=== PATIENT | male | born 1955 | race Caucasian/White ===

== ENCOUNTER → 2017-08-15 | Outpatient (CLI) | payer BC ==
--- NOTE | 2017-08-15 14:18 | DIAGNOSTIC IMAGING REPORT ---
L ANKLE MIN 3 VIEWS ROUTINE, L FOOT MIN 3 VIEWS ROUTINE CLINICAL HISTORY: LEFT ANKLE,FOOT INJURY COMPARISON STUDY: None. FINDINGS: Soft tissue swelling within the left ankle and midfoot. No acute fracture dislocation within the left ankle. Mildly displaced fracture involving the anterior calcaneus which extend into the anterior process. No fractures identified within the forefoot. IMPRESSION: 1. No acute fracture or dislocation within the left ankle. 2. Mildly displaced fracture involving the anterior calcaneus which extends into the anterior process. Electronically signed by: Keyshawn Adams M.D. 08/15/2017 2:17 PM Dictated Date/Time: 08/15/2017 2:12 PM
== END | disposition home or self-care (01) ==
LOC: C.RAD1850 13:41
PROVIDERS: ATTEND Student in an Organized Health Care Education/Training Program
DX: M79.672 Pain in left foot (principal); M25.572 Pain in left ankle and joints of left foot; M79.89 Other specified soft tissue disorders

== ENCOUNTER → 2017-08-15 | Outpatient (CLI) | payer BC ==
--- NOTE | 2017-08-15 15:01 | DIAGNOSTIC IMAGING REPORT ---
L VENOUS DOPP LOWER EXT UNILAT CLINICAL HISTORY: LEFT LEG SWELLING AND PAIN pain. Edema. TECHNIQUE: Venous Doppler COMPARISON STUDY: None FINDINGS: Normal study IMPRESSION: Normal study The above report was generated using voice recognition software. It may contain grammatical, syntax or spelling errors. Electronically signed by: Logan Hunt M.D. 08/15/2017 3:00 PM Dictated Date/Time: 08/15/2017 2:59 PM
== END | disposition home or self-care (01) ==
LOC: C.ULTR 14:29
PROVIDERS: ATTEND Student in an Organized Health Care Education/Training Program
DX: M79.89 Other specified soft tissue disorders (principal)

== ENCOUNTER → 2017-09-18 | Outpatient (CLI) | payer BC | END | disposition home or self-care (01) | LOC: C.RDSM 15:55 | PROVIDERS: ATTEND Orthopaedic Surgery | DX: S92.902A Unspecified fracture of left foot, initial encounter for closed fracture (principal); X58.XXXA Exposure to other specified factors, initial encounter ==

== ENCOUNTER → 2017-10-16 | Outpatient (CLI) | payer BC | END | disposition home or self-care (01) | LOC: C.RDSM 09:08 | PROVIDERS: ATTEND Orthopaedic Surgery | DX: T14.8XXA Other injury of unspecified body region, initial encounter (principal); X58.XXXA Exposure to other specified factors, initial encounter ==

== ENCOUNTER 2020-03-04 05:04 | Inpatient (IN) ==
--- NOTE | 2020-02-03 09:24 | PAT Medication Instructions ---
Medication Instructions Date of Service February 03, 2020 Home Medications Viagra 1 dose PO UD PRN coenzyme Q10 [CoQ-10] 100 mg PO DAILY ferrous sulfate [iron] 325 mg PO DAILY glucos sul [id number] [Glucosamine Chondroitin] 1 cap PO BID hydrochlorothiazide 12.5 mg PO QAM lutein-zeaxanthin 1 cap PO DAILY naproxen 250 mg PO BID PRN ASK your surgeon for instructions naproxen 250 mg PO BID PRN STOP taking 2 weeks before surgery lutein-zeaxanthin 1 cap PO DAILY glucos sul [id number] [Glucosamine Chondroitin] 1 cap PO BID coenzyme Q10 [CoQ-10] 100 mg PO DAILY STOP taking 24 hours before surgery Viagra 1 dose PO UD PRN DO NOT take the morning of surgery hydrochlorothiazide 12.5 mg PO QAM ferrous sulfate [iron] 325 mg PO DAILY NOTHING TO EAT OR DRINK AFTER MIDNIGHT Other Notes If you have any questions please call us at [phone] or [phone] or [phone] or [phone]
--- NOTE | 2020-02-04 09:20 | Anesthesiology Consultation ---
Date of Service February 04, 2020 Assessment & Plan (1) Encounter for pre-operative examination: Chart Review Chart Review: Pending: Refer to Additional Notes / Consult section (cardio clearance (PAT scheduling) and surgeon ordered PCP clearance ) and Patient seen in Pre Admission Testing EKG showing T wave abnormality- per cardio- T wave inversion have progressed from nonspecific TWA in 2015. Will refer for cardio clearance. Patient aware this may be happening. Awaiting surgeon ordered PCP clearance Per PAT visit 02/04/20, patient traveled to [facility] one week ago but stayed in car. Wears mask and takes precautions if out. No known PUI or Covid positive contacts. No current Covid related symptoms. No history of Covid testing. Did discourage any travel or new contact to others prior to surgery. Consults Requested cardiac (secondary to EKG changes ) Teaching & Discussion Pre-Anesthesia Teaching/Discussion Notes: Instructed NPO after midnight before surgery,except medications with 15 cc of water. Medication instructions provided according to the PAT guidelines. History Surgery Operation Date: 03/04/20 07:15 Proposed Procedures p Total Knee Arthroplasty - Shlomo Graham MD Height/Weight Height: 6 ft 3 in Weight: 119.9 kg Allergies Allergy/AdvReac Type Severity Reaction Status Date / Time No Known Allergies Allergy Verified 01/29/20 08:15 Medications Home Medications Medication Instructions Recorded Confirmed Last Taken Viagra 1 dose PO UD PRN 01/29/20 01/29/20 Unknown coenzyme Q10 [CoQ-10] 100 mg PO DAILY 01/29/20 01/29/20 Unknown ferrous sulfate [iron] 325 mg PO DAILY 01/29/20 01/29/20 Unknown glucos sul [id number] 1 cap PO BID 01/29/20 01/29/20 Unknown [Glucosamine Chondroitin] hydrochlorothiazide 12.5 mg PO QAM 01/29/20 01/29/20 Unknown lutein-zeaxanthin 1 cap PO DAILY 01/29/20 01/29/20 Unknown naproxen 250 mg PO BID PRN 01/29/20 01/29/20 Unknown Past Medical History Medical History History of basal cell carcinoma Removed with Mohs procedure- follows with derm routinely Hypertension Macular degeneration Osteoarthritis Exercise / Class Metabolic Activity II 4-5 Yardwork/Stairs/Walk up hill (one flight of stairs - no chest pain or SOB ) Past Family History Family History Mother Post-operative nausea and vomiting Father Diabetes Aunt Colon cancer Past Surgical History Surgical History History of arthroscopy of right knee History of Mohs micrographic surgery for skin cancer History of surgery right biceps tendon repair History of wisdom tooth extraction Nausea and vomiting after administration of anesthetic agent Past Anesthesia History No Hx of Anesthesia Complications and No Family Hx of Anesthesia Complications (with exception to mother - PONV) History of PONV No Hx of PONV and No Hx of Motion Sickness Social History Smoking Status: Never smoker Do You Dip or Chew Tobacco: No Hx Alcohol Use: Yes Alcohol type: wine alcohol intake frequency: holidays/special occasions only Hx Substance Use: No Review of Systems Occ snoring- no witnessa apnea Patient denies chest pain, shortness of breath, dyspnea on exertion, reflux, cough, wheezing, palpitations. No hx of seizures, stroke, NM.. No hx of blood clots or blood transfusions Physical Exam Vital Signs VITALS BP 136/85 P 65 TEMP 98.2 SP02 95% RESP 16 Constitutional no acute distress ENMT Mouth: no TMJ clicking Thyromental Distance: > or= 3.5 Finger Breadths (3.5) Mallampati Class: II Cap on front tooth loose. Chipped molar. Crowns to molars Neck neck extension not limited Respiratory normal respiratory effort; no respiratory distress Auscultation: lungs clear to auscultation bilaterally; no wheezes Cardiovascular Rate/Rhythm: regular rate and regular rhythm Heart Sounds: no murmur Vessels: no carotid bruit Musculoskeletal Spine: no pain with cervical ROM Neurologic moves all extremities Psychiatric Orientation: alert Testing Laboratory Results 02/04/20 09:17 02/04/20 09:17 PT 11.4 Seconds (9.0-12.0) 02/04/20 09:17 INR 1.1 (0.9-1.1) 02/04/20 09:17 Hemoglobin A1c 4.9 % (4.5-5.6) 02/04/20 09:17 Urine Color Yellow 02/04/20 09:17 Urine Appearance Clear (Clear) 02/04/20 09:17 Urine pH 5.0 (4.5-7.5) 02/04/20 09:17 Ur Specific [place] 1.026 (1.000-1.030) 02/04/20 09:17 Urine Protein Negative (Negative) 02/04/20 09:17 Urine Glucose (UA) Negative (Negative) 02/04/20 09:17 Urine Ketones Negative (Negative) 02/04/20 09:17 Urine Nitrite Negative (Negative) 02/04/20 09:17 Ur Leukocyte Esterase Negative (Negative) 02/04/20 09:17 Blood Type O Negative 02/04/20 09:17 Antibody Screen NEGATIVE 02/04/20 09:17 Electrocardiogram Date: 02/04/20 Findings: + NSR @ (63) T wave abnormality, consider inferior ischemia. Compared to EKG from March 22, 2015inverted T waves have replaced nonspecific T wave abnormality in inferior leads.
[2020-02-04 10:34] LABS: Appearance Urine Clear (Clear); Bilirubin Urine Negative (Negative); Blood Urine Negative (Negative); Color Urine Yellow; Glucose Urine UA Negative (Negative); Ketones Urine Negative (Negative); Leukocyte Esterase Urine Negative (Negative); Nitrite Urine Negative (Negative); Protein Urine Negative (Negative); Specific Gravity Urine 1.026 (1.000-1.030); Urobilinogen Urine Negative (Negative)
[2020-02-04 10:36] LABS: Albumin Level 3.9 gm/dl (3.4-5.0); BUN Creatinine Ratio 21.4 (10-20); Calcium 8.8 mg/dl (8.5-10.1); Creatinine Clr Calc Pharmacy 110.5 ml/min; Est GFR (African American) 99.5; Est GFR (Non-African American) 85.8; INR 1.1 (0.9-1.1); Prothrombin Time 11.4 Seconds (9.0-12.0)
[2020-02-04 10:38] LABS: Albumin Globulin Ratio 0.8 (0.9-2); Bilirubin,Total 0.8 mg/dl (0.2-1); Globulin 4.6 gm/dl (2.5-4.0); Total Protein 8.5 gm/dl (6.4-8.2)
[2020-02-04 10:45] LABS: Basophils # (auto) 0.02 K/uL (0-0.2); Basophils % (auto) 0.3 %; Eosinophils # (auto) 0.17 K/uL (0-0.5); Eosinophils % (auto) 2.3 %; Hematocrit (blood only) 41.4 % (42-52); Hemoglobin 14.6 g/dL (14.0-18.0); Immature Granulocytes # (auto) 0.01 K/uL (0.00-0.02); Immature Granulocytes % (auto) 0.1 %; Lymphocytes # (auto) 0.82 K/uL (1.2-3.4); Lymphocytes % (auto) 11.2 %; Mean Corpuscular Hemoglobin 30.2 pg (25-34); Mean Corpuscular Hgb Conc 35.3 g/dL (32-36); Mean Corpuscular Volume 85.7 fL (80-100); Monocytes # (auto) 0.77 K/uL (0.11-0.59); Monocytes % (auto) 10.6 %; Neutrophils % (auto) 75.5 %; Platelet Count 184 K/uL (130-400); Red Blood Count 4.83 M/uL (4.7-6.1); White Blood Count 7.29 K/uL (4.8-10.8)
[2020-02-04 11:01] LABS: Estimated Average Glucose 94 mg/dl; Hemoglobin A1C 4.9 % (4.5-5.6)
--- NOTE | 2020-02-04 11:02 | History & Physical Report ---
Date of Service February 04, 2020 Assessment & Plan (1) Osteoarthritis of right knee: Plan: Patient is scheduled to undergo this procedure with Dr. Shlomo Cano the [facility], as an inpatient on March 04, 2020. Risks and complications of the procedure such as: Infection, bleeding, pain, scarring, nerve blood vessel damage, weakness, wound problems, stiffness, incomplete relief of symptoms, hardware failure, hardware loosening, wear, fracture, tendon or ligament injury, blood clots, embolism, heart attack, stroke or were explained to the patient by Dr. Lema at his visit today. Patient is aware of the risks and informed consent to proceed with surgery was obtained at today's visit. Patient also understands the risks of proceeding with surgical intervention during the COVID-19 pandemic. Currently he is asymptomatic and COVID-19 testing will be performed prior to his surgery. We will also obtain a preoperative CBC with differential, a complete metabolic panel, PT/INR, blood type and screen, urinalysis, urine culture, EKG, hemoglobin A1c and a nasal culture for MRSA. Also a clearance form was faxed to the patient's primary care providers office for surgical approval (Dr. David Wyatt). Patient has an appointment with PAT at the hospital later this morning and we will obtain the necessary testing at that time. Patient states that he has a walker he will bring with him on the day of surgery. We discussed discharge planning and patient states that due to the COVID-19 crisis he will most likely attempt to do therapy on his own at home, and after 2 weeks time we will most likely do outpatient therapy at [facility] in [place]. Went over the total knee arthroplasty packet. Discussed antibiotic use after total joint surgery. Advised the patient that we will discharge him with pain medication and have him take 2 baby aspirin daily for 30 days postoperatively for DVT prophylaxis. Patient is scheduled for his 2-week postoperative follow-up with myself on March 19, 2020 at 1 PM. The patient verbalizes understanding of all information provided during today's visit, thanks us for the care he received, and states if he has questions or concerns that should arise prior to his procedure, he will contact clinic. History of Present Illness Chief Complaint: Right knee pain Primary Care Provider: David Wyatt MD History of Present Illness (including history relevant to procedure): This 64-year-old male presents the clinic today for his preoperative history and physical. Patient has had ongoing right knee pain with some swelling/effusion since November 2018. Patient is attended physical therapy, has had multiple steroid injections as well as joint aspiration, but has failed these conservative measures. He is also used nonsteroidal agents with only mild relief. At times he needs to use a cane as an ambulatory aid due to an antalgic gait. Patient is an avid hiker and states that this pain is preventing him from taking trips or hiking on the weekends. Past Medical History: Problems: Right knee DJD Arthritis of both knees Blood donor HBP (high blood pressure) Medicare annual wellness visit, subsequent Tendinitis Cataract, bilateral Lesion of skin of face Rupture of left long head biceps tendon History of dysplastic nevus Nocturia Family history of diabetes mellitus in father Weight disorder Need for prophylactic vaccination and inoculation against influenza ROUTINE GENERAL MEDICAL EXAMINATION AT A HEALTH CARE FACILITY SPLENOMEGALY Low ferritin Onychomycosis Macular degeneration Prostatism ED (erectile dysfunction) Diverticulosis Hemorrhoid Procedure History Procedure Procedure Date Comments Extraction of wisdom tooth Dysplastic nevus removal MRI of right knee 10/08/2019 - impression:1. postoperative changes of partial meniscectomy of the medial meniscus with near complete loss of volume of the body which is extruded into the medial gutter. Horizontal tear of the posterior horn extends into the root ligament which may have been present at the time of the meniscetomy. Correlate with prior imaging2. Vertical longitudinal tear of the junction of the body and posterior orn of the lateral meniscus3. Tricompartmental grade 4 chondrosis4. Lare knee joint effusion with diffuse synovitis and a moderate-sized Bakers cyst Procedure 2018 - right knee Venous doppler ultrasonography 08/15/2017 - Impression:Normal study X-ray of left ankle 08/15/2017 - Impression:1. No acute fracture or dislocation within the left ankle.2. Mildly displaced fracture involving the anterior calcaneus which extends into the anterior process. Mohs' micrographic surgery 05/16/2017 - right cheek Electrodesiccation with curettage 04/12/2017 - shave left shoulder 3 views 05/11/2016 - Impression: No acute bony abnormality is seen in the left shoulder cervical spine 6 views 05/11/2016 - Impression:No acute bony abnormality is seen involving the cervical spine.Mild cervical spondylosis as above See report Arthroscopic repair of meniscus 03/23/2015 - Right knee Colonoscopy: diverticulosis 06/13/2011 Repair of ruptured biceps tendon 02/1999 - right Allergies and Sensitivities: Allergy Not found in Search(abdominal pain, diarrhea) Family history: Positive for cancer, diabetes, heart disease, hypertension, hypercholesterolemia, rheumatic heart disease, osteoporosis Social history: Completely unremarkable Current Home Meds: (Last Updated 02/03 07:54) glucosamine (Chondroitin- Glucosamine) 1 cap PO Daily Chondroitin 1200 mg and Glucosamine 1500 mg - C Boy 04/06 08:14topical (Voltaren 1% topical gel) 1 appl topical qid PRN: Pain 4g to affected area 4 times a daysulfate (ferrous sulfate 324 mg (65 mg elemental iron) oral tablet) 324 mg PO Daily(hydroCHLOROthiazide 12.5 mg oral tablet) 12.5 mg PO Dailywith minerals (ICaps with Lutein and Zeaxan) 1 tab PO Daily Lutein 25 mg and Zeaxan 5 mg - C Boy 04/06 08:13(naproxen sodium 220 mg oral capsule) 220 mg PO [id number] conjugate vaccine (Prevnar 13 intramuscular suspension) 0.5 mL IM ONCE please administer.(Viagra 100 mg oral tablet) 100 mg PO Daily PRN: as needed for erectile dysfunction 1 hour before sexual activitytopical (triamcinolone 0.1% topical ointment) 1 appl topical bid apply to dermatitis on the ear until clear and then use as needed(Coenzyme Q10 100 mg oral capsule) 100 mg PO Dailyvaccine, inactivated (Shingrix intramuscular injection) 0.5 mL IM ONCE repeat dose in 2 to 6 months Allergies Allergy/AdvReac Type Severity Reaction Status Date / Time No Known Allergies Allergy Verified 01/29/20 08:15 Home Medications Home Medications Medication Instructions Recorded Confirmed Type Viagra 1 dose PO UD PRN 01/29/20 01/29/20 History coenzyme Q10 [CoQ-10] 100 mg PO DAILY 01/29/20 01/29/20 History ferrous sulfate [iron] 325 mg PO DAILY 01/29/20 01/29/20 History glucos sul [id number] 1 cap PO BID 01/29/20 01/29/20 History [Glucosamine Chondroitin] hydrochlorothiazide 12.5 mg PO QAM 01/29/20 01/29/20 History lutein-zeaxanthin 1 cap PO DAILY 01/29/20 01/29/20 History naproxen 250 mg PO BID PRN 01/29/20 01/29/20 History Past Med/Surg History Medical History History of basal cell carcinoma Removed with Mohs procedure- follows with derm routinely Hypertension Macular degeneration Osteoarthritis Surgical History History of arthroscopy of right knee History of Mohs micrographic surgery for skin cancer History of surgery right biceps tendon repair History of wisdom tooth extraction Nausea and vomiting after administration of anesthetic agent Family History Mother Post-operative nausea and vomiting Father Diabetes Aunt Colon cancer Social History Preferred Language: Irish Communication Ability: Effective Gaming Dealer Required: No Beliefs That Will Affect Care: None Current Living Situation: Spouse Other Information That Helps Us Care for You: No Feels Safe at Home: Yes Safety Concerns: Feels Safe At This Time Smoking Status: Never smoker Do You Dip or Chew Tobacco: No ; Second Hand Exposure: No ; Hx Alcohol Use: Yes Alcohol type: wine Hx Substance Use: No Review of Systems All systems reviewed & are unremarkable except as noted in HPI & below Physical Exam Physical Exam: Physical Exam: (relevant to the procedure, including heart and lung evaluation) General: Alert and oriented x3 with proper grooming and hygiene Eyes: Pupils are equal and reactive to light, and accommodating. Extraocular movements are intact Throat: Anterior oropharynx is clear with absence of edema, erythema and exudate Cardiac: Regular rate and rhythm with no murmurs or gallops appreciated Lungs: Clear to auscultation throughout with no wheezing, rales or rhonchi Abdomen: Obese, nondistended, nontender with normal active bowel sounds Extremities: Right knee; range of motion is from 5 to 120 degrees. There is crepitation with passive range of motion. There is medial joint line tenderness when knee is palpated in the flexed position. There is palpable crepitation with manipulation of the patient's patella. There is 2+ effusion. There is no erythema, ecchymosis, warmth or palpable bony deformity. Patient is neurovascular intact in the right lower extremity. Neuro: Cranial nerves II through XII are intact with no motor or sensory deficit Skin: Normal in appearance with no open skin areas or discharge. Results & Data Diagnostic Findings Studies (relevant to the procedure): MRI that was done on 10/08/2019 was reviewed. This demonstrates significant loss of the meniscal tissue in the medial aspect of the knee consistent with his prior meniscectomy. The medial compartment has significant chondral loss as well as bone marrow edema noted on both sides of the tibiofemoral joint and the medial compartment. He has some bone marrow edema seen in the lateral aspect of the tibial plateau as well. There is some tearing of the residual posterior horn of the medial meniscus as well as a tear of the lateral meniscus. He has significant patellofemoral wear as well with bone marrow edema within the superior and central aspect of the patella.
--- NOTE | 2020-02-04 16:17 | Electrocardiogram Report ---
Test Reason : Blood Pressure : / mmHG Vent. Rate : 063 BPM Atrial Rate : 063 BPM P-R Int : 156 ms QRS Dur : 102 ms QT Int : 412 ms P-R-T Axes : 062 074 -47 degrees QTc Int : 421 ms Normal sinus rhythm T wave abnormality, consider inferior ischemia Abnormal ECG When compared with ECG of 22-MAR-2015 09:51, Inverted T waves have replaced nonspecific T wave abnormality in Inferior leads Confirmed by Phong Salazar ([id number]) on 02/04/2020 4:17:23 PM Referred By: Shlomo Graham Confirmed By:Cl Salazar
[2020-03-04] MEDS ORDERED: FAMOTIDINE 20 MG TAB PO SCH (06:00)
[2020-03-04] MEDS ORDERED: dexAMETHasone 4 MG TAB PO SCH (06:00)
[2020-03-04] MEDS ORDERED: CeleBREX 200 MG CAP PO SCH (06:00)
[2020-03-04] MEDS ORDERED: ROPIVACAINE 0.5% HCL/PF 150 MG, BUPIVACAINE 0.5% MPF 30 ML, EPINEPHrine 0.15 MG, Ketoro... INFIL SCH (06:00)
[2020-03-04] MEDS ORDERED: LR 500ML BOLUS, THEN 15ML/HR IV SCH (06:00)
[2020-03-04] MEDS ORDERED: TRANEXAMIC ACID 1,000 MG **IV Pre-op IV SCH (06:00)
[2020-03-04] MEDS ORDERED: CEFAZOLIN 3000MG 72.5 ML IV SCH (06:00)
[2020-03-04] MEDS ORDERED: TRANEXAMIC ACID / 0.7% NACL 1,000 MG/100 ML BAG IV SCH ×2 (06:00→15:30)
[2020-03-04] MEDS ORDERED: TRAMADOL HCL 50 MG TABLET PO SCH (06:00)
[2020-03-04] MEDS ORDERED: LR 60ML/HR IV SCH (06:00)
[2020-03-04] MEDS ORDERED: SCOPOLAMINE 1.5 MG TDSY TD SCH (06:00)
[2020-03-04] MEDS ORDERED: ACETAMINOPHEN 500 MG TAB PO SCH (06:00)
[2020-03-04] MEDS ORDERED: METOCLOPRAMIDE HCL 10 MG TABLET PO SCH (06:00)
[2020-03-04] MEDS ORDERED: BUPIVACAINE/EPINEPHRINE 0.25% 1:200,000 30 ML VIAL ONE (06:21)
[2020-03-04] MEDS ORDERED: BUPIVACAINE 0.5 % 5 MG/1 ML PF 10ML VIAL ONE (06:21)
[2020-03-04] MEDS ORDERED: fentaNYL citrate 100 MCG/2 ML VIAL ONE (06:33)
[2020-03-04] MEDS ORDERED: LIDOCAINE HCL 2% 2 ML VIAL/AMP(20MG/ML) INFIL ONE (06:33)
[2020-03-04] MEDS ORDERED: PROPOFOL IV EMULSION 10 MG/ML 20 ML VIAL IV ONE ×3 (06:33→07:53)
[2020-03-04] MEDS ORDERED: MIDAZOLAM HCL 1 MG/ML 2ML VIAL ONE ×2 (06:33→10:54)
--- NOTE | 2020-03-04 06:44 | History & Physical Bridge Note ---
Date of Service March 04, 2020 History & Physical Bridge Note I have examined the patient, reviewed the History & Physical and in the interval since the performance of the History & Physical I have noted the following changes of clinical significance: no changes noted
[2020-03-04] MEDS ORDERED: ATROPINE SULFATE 0.1 MG/ML 10ML SYR IV PRN (06:55)
[2020-03-04] MEDS ORDERED: ePHEDrine sulfate 50 MG/ML AMP IV PRN (06:55)
[2020-03-04] MEDS ORDERED: fentaNYL citrate 100 MCG/2 ML VIAL IV PRN (06:55)
[2020-03-04] MEDS ORDERED: ONDANSETRON INJ 2 MG/ML 2 ML VIAL IV PRN ×2 (06:55→09:23)
[2020-03-04] MEDS ORDERED: HYDROmorphone INJ 2 MG/ML SYR/VIAL IV PRN (06:55)
[2020-03-04] MEDS ORDERED: ORTHO JOINT ANESTHETIC ONE (07:01)
[2020-03-04] MEDS ORDERED: ePHEDrine sulfate 50 MG/ML SYR ONE (07:56)
--- NOTE | 2020-03-04 09:15 | Operative Report ---
Post Operative Report Pre & Post Diagnosis Operation Date: 03/04/20 07:15 Pre-Op Diagnosis: Right Knee Ostoearthritis Post-Op Diagnosis: Right Knee Ostoearthritis I identified the patient and participated in the time-out.: Yes Procedure Operation Date: 03/04/20 07:15 Actual Procedures p Right Total Knee Arthroplasty(Right) - Shlomo Graham MD Surgeon Shlomo Graham MD Real Estate Firm Manager Carroll Robbins MD and RUPINDER Charles PA-C Estimated Blood Loss 100 Findings Consistent with Post-Op Diagnosis Specimens R knee bone and soft tissue. Anesthesia Type Spinal MAC Complications none Disposition Accompanied Patient To Recovery: No Disposition: Recovery Room Indications 64-year-old male with right knee osteoarthritis refractory to conservative management. X-rays and MRI demonstrate end-stage osteoarthritis. I had a long discussion with him about the risks and benefits of surgery alternatives to surgery and expected outcomes. After reviewing all these elected to proceed with surgery. All questions were answered. Informed consent was signed. Description of Procedure Patient was identified in the preoperative holding area where the surgical site was marked. Patient was brought back to the operating room, placed on the operating room table, and IV sedation was administered. All bony prominences were padded. Perioperative antibiotics and tranexamic acid were administered. Exam under anesthesia was performed. Patient had a 7 degree flexion contracture and flexed up to 125 degrees. He was stable to varus and valgus at 0 and 30 degrees. The surgical site was prepped and draped in the normal sterile fashion. Prior to incision a multidisciplinary timeout was called. All in the room were in agreement. We began by exsanguinating the limb with an Esmarch bandage. Tourniquet was inflated to 250 mmHg. A 16 cm long incision was made over the anterior aspect of the knee. I dissected through the subcutaneous tissues to the level of the fascia. Full-thickness flaps are raised above the fascia. A median parapatellar arthrotomy was made. Half the fat pad was excised. A medial release was performed with Bovie electrocautery on the proximal tibia. Synovitis in the suprapatellar pouch was removed. The patella was then everted and held with 2 towel clips. The thickness of the patella was measured at 25 mm. Patellar resection was performed. Caliper showed the patella thickness now to be 15 mm. A size 41 trial was placed and had a great fit. The 3 drill holes were placed then the trial button was placed. The patellar thickness was now 26 mm which I was very happy with. The patellar trial was then removed, the patella was everted and the knee was flexed up. Osteophytes were removed from the femoral condyles and intercondylar notch. The ACL and PCL were excised. Intramedullary drill guide was drilled into the femur. Distal femoral cutting guide was placed set at 5 degrees of valgus to resect 11 mm off the distal femur. Distal femoral resection was made without difficulty. Due to his flexion contracture I elected to take another 2 mm off the distal femur which was done without difficulty. The tibia was then exposed. The lateral meniscus was sharply excised. The tibial cutting jig was set 2 clicks medial at the ankle to resect 10 mm off the less involved compartment. The jig was then pinned in position and the tibial cut was made. We then brought the knee into full extension. Lamina spreaders were placed. The medial meniscus was excised. The extension block was then placed for 12.5 mm thickness poly. This gave us full extension and excellent stability to varus and valgus. Next the knee was flexed up and the femoral sizing guide was placed. The patient sized to a size 6 femur. The 3 degree external rotation jig was used to create 2 holes in the distal femur. The jig was removed and the holes were compared to Whitesides axis and the epicondylar axis. We were happy with the rotation, and therefore placed a size three 4-in-1 cutting jig and pinned this into position. Our 4 cuts were made. The cutting jig was removed. The flexion block was then placed with the knee held at 90 degrees. There was excellent stability to varus and valgus at 90 degrees with no gapping medially or laterally. Next the box cutting jig was placed on the distal femur. The box cut was made and the femoral trial was impacted into position. The tibia was sized to a 5 for a rotating platform component. The tibial tray was positioned in external rotation on the cut tibial surface and the knee was brought through a full range of motion. We then pinned the tibial tray into position and used the intramedullary drill followed by the keel punch. The trial polyethylene was then placed and the knee was brought through a full range of motion. I was very happy with the stability through a full range of motion. Next the trial components were removed. I then injected the posterior capsule and periosteum with the periarticular injection cocktail. The bone cuts were then irrigated and dried while the cement was mixed on the back table. The femoral component was cemented on first. Excess cement was removed. A lap sponge was placed over the femoral component for protection, then the tibia was subluxated anteriorly. The size 5 tibial component was then cemented in place. Again excess cement was removed. The trial polyethylene was then placed and the knee was brought into full extension and held there until the cement cured. The patella was cemented and clamped. Dilute Betadine solution was then allowed to irrigate the knee while the cement cured. Once the cement was fully cured, the tourniquet was let down and meticulous hemostasis was ensured. The wound was irrigated out with copious amounts normal saline. The knee was brought through a full range of motion and we are very happy with the patella tracking and the stability. Therefore, the trial tibial polyethylene was removed and the real size 6 polyethylene 12.5 mm thickness was placed to match the femur. We then began to close. Interrupted 0 Vicryl suture was used to repair the patellar retinaculum in figu re-of-eight fashion. The quadriceps and patellar tendons were run with #1 Ethibond. The deep dermal layer was closed with running 2-0 Vicryl. Chris were used for the skin. A compressive dressing was placed. Patient's sedation was lifted and was transferred to recovery room in stable condition. Summary of implants: GigaLogixuy Sigma Posterior Stabilized Cemented Femur, size 6 Tibial Tray cemented, size 5 Tibial polyethylene insert, 12.5 mm thickness, size 6 to match the femur Oval come patella, size 41 2 batches of simplex bone cement Postoperative course: Patient will be admitted to the floor for pain control and monitoring. Weightbearing as tolerated with no knee range of motion for 48 hours. Aspirin for DVT prophylaxis. I attest to the content of the Intraoperative Record and any orders documented therein. Any exceptions are noted below.
[2020-03-04] MEDS ORDERED: ALUMINUM/MAGNESIUM SUSP 30 ML UDC PO PRN (09:23)
[2020-03-04] MEDS ORDERED: bisacodyL 10 MG SUPP PR PRN (09:23)
[2020-03-04] MEDS ORDERED: TAMSULOSIN HCL 0.4 MG CAP PO PRN (09:23)
[2020-03-04] MEDS ORDERED: DiphenhydrAMINE HCL 50 MG/ML VIAL IV PRN (09:23)
[2020-03-04] MEDS ORDERED: OXYCODONE HCL IR 5 MG TAB (IMMEDIATE RELEASE) PO PRN (09:23)
[2020-03-04] MEDS ORDERED: MAGNESIUM HYDROXIDE SUSP 30 ML UDC PO PRN (09:23)
[2020-03-04] MEDS ORDERED: METOCLOPRAMIDE HCL INJ 5 MG/ML 2 ML VIAL IV PRN (09:23)
[2020-03-04] MEDS ORDERED: NALOXONE HCL 0.4 MG/1 ML VIAL/CARP IV PRN (09:23)
--- NOTE | 2020-03-04 09:23 | Operative Report ---
Post Operative Report Pre & Post Diagnosis Operation Date: 03/04/20 07:15 Pre-Op Diagnosis: Right Knee Ostoearthritis Post-Op Diagnosis: Right Knee Ostoearthritis I identified the patient and participated in the time-out.: Yes Procedure Operation Date: 03/04/20 07:15 Actual Procedures p Right Total Knee Arthroplasty(Right) - Shlomo Graham MD Surgeon Shlomo Graham MD Electronic Tech Carroll Robbins MD and RUPINDER Charles PA-C Estimated Blood Loss 100 Findings Consistent with Post-Op Diagnosis Specimens Right knee synovium Complications none Disposition Accompanied Patient To Recovery: Yes Disposition: Recovery Room Description of Procedure I was present during the entire procedure assisting with wound closure and dressing application. Please see Dr. Graham procedure note for specifics of the case. I attest to the content of the Intraoperative Record and any orders documented therein. Any exceptions are noted below.
--- NOTE | 2020-03-04 09:36 | Operative Report ---
Post Operative Report Pre & Post Diagnosis Operation Date: 03/04/20 07:15 Pre-Op Diagnosis: Right Knee Ostoearthritis Post-Op Diagnosis: Right Knee Ostoearthritis I identified the patient and participated in the time-out.: Yes Procedure Operation Date: 03/04/20 07:15 Actual Procedures p Right Total Knee Arthroplasty(Right) - Shlomo Graham MD Surgeon Shlomo Graham MD Senior Electrical Design Engineer Carroll Robbins MD and RUPINDER Charles PA-C Estimated Blood Loss 100 Findings Consistent with Post-Op Diagnosis Specimens Synovium and bone curs from Right knee Complications none Disposition Accompanied Patient To Recovery: Yes Disposition: Recovery Room Description of Procedure Supine,standard prep and drape, tourniquet, time out Right Total Knee Arthroplasty Please see Dr Graham's procedure notes for specific details I was present throughout the case, assisted for wound closure and transferred the patient to PACU in stable condition I attest to the content of the Intraoperative Record and any orders documented t herein. Any exceptions are noted below.
--- NOTE | 2020-03-04 09:48 | XRay Report ---
XR knee RT 1 or 2V routine CLINICAL HISTORY: Postoperative evaluation. COMPARISON: Right knee radiographs February 04, 2020. FINDINGS: Alignment of the total right knee arthroplasty is anatomic. No fracture or unexpected radi opaque foreign body. There are skin neelam. IMPRESSION: Expected findings following total right knee arthroplasty. ACT 112: Negative or not required by law. Electronically signed by: Willis Castillo M.D. 03/04/2020 9:47 AM
--- NOTE | 2020-03-04 10:06 | Anesthesiology Progress Note ---
Date of Service March 04, 2020 Anesthesia Post Procedure Vital Signs Vital Signs: Temp Pulse Pulse Resp BP Pulse Ox 03/04/20 10:00 36.6 C 59 L 18 125/75 96 03/04/20 09:50 36.6 C 60 20 118/70 96 03/04/20 09:40 59 L 14 119/62 95 03/04/20 09:30 62 14 121/72 97 03/04/20 09:22 36.3 C L 65 16 124/67 95 03/04/20 06:12 67 18 156/80 H 99 03/04/20 05:41 37 C 61 18 144/90 H 99 Transfer of Care Handoff Completed per policy Notes Mental Status: alert / awake / arousable and participated in evaluation Patient Amnestic to Procedure: Yes Nausea / Vomiting: adequately controlled Pain: adequately controlled Airway Patency, RR, SpO2: stable & adequate BP & HR: stable & adequate Hydration State: stable & adequate Anesthetic Complications: no major complications apparent and Pt Satisfied with anesthetic care
[2020-03-04] MEDS: KETOROLAC TROMETHAMINE 15 MG/ML VIAL IV SCH ×3 (12:36→23:30)
[2020-03-04] MEDS: SODIUM CHLORIDE 0.9% 1000ML 1,000 ML IV SCH ×2 (12:36→22:51)
[2020-03-04] MEDS: ACETAMINOPHEN 500 MG TAB PO SCH ×2 (13:52→21:34)
[2020-03-04] MEDS: CEFAZOLIN 2000MG 2,000 MG/15 ML SYR IV SCH ×2 (15:16→23:29)
[2020-03-04] MEDS: CHECK SCOPOLAMINE PATCH PLACEMENT SCH (15:25)
[2020-03-04] MEDS: ASPIRIN 81 MG ECTAB PO SCH (20:24)
[2020-03-04] MEDS: DOCUSATE SODIUM 100 MG CAP PO SCH (20:25)
[2020-03-04] MEDS ORDERED: NON-FORMULARY MEDICATION (Glucos Sul 2kcl-Msm-Chond-C-Mn [Glucosamine Chondroitin] 1 CAP) PO SCH (21:00)
[2020-03-04] MEDS ORDERED: SENNA 8.6 MG TAB PO SCH (21:00)
[2020-03-05] MEDS: CHECK SCOPOLAMINE PATCH PLACEMENT SCH ×2 (00:04→08:26)
[2020-03-05] MEDS: ACETAMINOPHEN 500 MG TAB PO SCH (05:26)
[2020-03-05] MEDS: KETOROLAC TROMETHAMINE 15 MG/ML VIAL IV SCH (05:26)
[2020-03-05 06:13] LABS: Hematocrit (blood only) 30.5 % (42-52); Hemoglobin 10.7 g/dL (14.0-18.0); Mean Corpuscular Hemoglobin 30.4 pg (25-34); Mean Corpuscular Hgb Conc 35.1 g/dL (32-36); Mean Corpuscular Volume 86.6 fL (80-100); Mean Platelet Volume 9.7 fL (7.4-10.4); Platelet Count 168 K/uL (130-400); RDW Coefficient of Variation 14.1 % (11.5-14.5); RDW Standard Deviation 44.6 fL (36.4-46.3); Red Blood Count 3.52 M/uL (4.7-6.1)
[2020-03-05 06:41] LABS: BUN Creatinine Ratio 16.4 (10-20); Calcium 8.5 mg/dl (8.5-10.1); Est GFR (African American) 86.9
[2020-03-05] MEDS ORDERED: dexAMETHasone 4 MG TAB PO SCH (08:00)
[2020-03-05] MEDS: ASPIRIN 81 MG ECTAB PO SCH (08:26)
[2020-03-05] MEDS: DOCUSATE SODIUM 100 MG CAP PO SCH (08:28)
[2020-03-05] MEDS ORDERED: NON-FORMULARY MEDICATION (Lutein-Zeaxanthin 1 CAP) PO SCH (09:00)
[2020-03-05] MEDS ORDERED: hydroCHLOROthiazide 25 MG TAB PO SCH (09:00)
[2020-03-05] MEDS ORDERED: FERROUS SULFATE 325 MG TAB PO SCH (09:00)
[2020-03-05] MEDS ORDERED: MULTIVITAMIN TAB PO SCH (09:00)
[2020-03-05] MEDS ORDERED: NON-FORMULARY MEDICATION (Coenzyme Q10 [Coq-10] 100 MG) PO SCH (09:00)
--- NOTE | 2020-03-05 11:31 | Orthopedic Progress Note ---
Date of Service March 05, 2020 Assessment & Plan (1) S/P total knee arthroplasty: WBAT with immobilizer (first 48 hrs post op) and walker assistance Dressing removed and Silverlon applied Keep in place until follow up PT/OT Pain control with PO meds Ice with EZ wrap DVT prophy with Aspirin and TEDs Discharge home later today with in home PT F/u at [facility] as previous scheduled With questions call Admission and Anticipated Discharge Date Admission Date: March 04, 2020 Subjective This 64 yo Male is day 1 s/p Right total knee arthroplasty. Patient states that he is doing well and that his pain is well controlled with the PO meds. He states that he has been ambulating with the immobilizer and walker assistance. He states that he still has some numbness around the incision site. Currently he denies CP, SOB, nausea, vomiting, fever, chills, sweats or lethargy. Review of Systems Review of Systems: All systems reviewed & are unremarkable except as noted in Subjective Physical Exam Physical Exam: Right knee: active ROM from 0-65 degrees. Able to actively SLRT, dorsi/plantar flex foot. Quad strength 3/5. Mild edema and small amount of bloody discharge from distal incision site. No fluctuance. Calf soft and supple. NV intact. Periph pulse palpable. Cap refill < 2 seconds. No clunking with light varus/valgus stressing. Results & Data ([facility]) Vital Signs (Past 12 Hours) Vital Signs Temp Pulse Resp BP Pulse Ox 03/05/20 11:06 36.4 C L 56 L 18 134/75 94 03/05/20 08:25 117/67 03/05/20 07:23 36.4 C L 54 L 18 130/63 98 03/05/20 03:13 36.4 C L 53 L 20 115/65 96 03/04/20 23:33 36.7 C 54 L 18 113/68 96 Laboratory Results 03/05/20 03/05/20 Range/Units 05:58 05:58 WBC 11.10 H (4.8-10.8) K/uL RBC 3.52 L (4.7-6.1) M/uL Hgb 10.7 L (14.0-18.0) g/dL Hct 30.5 L (42-52) % MCV 86.6 (80-100) fL MCH 30.4 (25-34) pg MCHC 35.1 (32-36) g/dL RDW Std Deviation 44.6 (36.4-46.3) fL RDW Coeff of Gregorio 14.1 (11.5-14.5) % Plt Count 168 (130-400) K/uL MPV 9.7 (7.4-10.4) fL Sodium 138 (136-145) mmol/L Potassium 4.0 (3.5-5.1) mmol/L Chloride 107 (98-107) mmol/L Carbon Dioxide 26 (21-32) mmol/L Anion Gap 6.0 (3-11) BUN 17 (7-18) mg/dl Creatinine 1.04 (0.6-1.4) mg/dl Est Cr Clr Drug Dosing 96.0 ml/min Est GFR ( Amer) 86.9 Est GFR (Non-Af Amer) 75.0 BUN/Creatinine Ratio 16.4 (10-20) Glucose 96 (70-99) mg/dl Calcium 8.5 (8.5-10.1) mg/dl
[2020-03-05] MEDS ORDERED: CeleBREX 200 MG CAP PO SCH (12:00)
--- NOTE | 2020-03-05 12:07 | Discharge Summary ---
Date of Service March 05, 2020 Admission HPI Per Admitting Provider History of Present Illness (including history relevant to procedure): This 64-year-old male presents the clinic today for his preoperative history and physical. Patient has had ongoing right knee pain with some swelling/effusion since November 2018. Patient is attended physical therapy, has had multiple steroid injections as well as joint aspiration, but has failed these conservative measures. He is also used nonsteroidal agents with only mild relief. At times he needs to use a cane as an ambulatory aid due to an antalgic gait. Patient is an avid hiker and states that this pain is preventing him from taking trips or hiking on the weekends. Past Medical History: Problems: Right knee DJD Arthritis of both knees Blood donor HBP (high blood pressure) Medicare annual wellness visit, subsequent Tendinitis Cataract, bilateral Lesion of skin of face Rupture of left long head biceps tendon History of dysplastic nevus Nocturia Family history of diabetes mellitus in father Weight disorder Need for prophylactic vaccination and inoculation against influenza ROUTINE GENERAL MEDICAL EXAMINATION AT A HEALTH CARE FACILITY SPLENOMEGALY Low ferritin Onychomycosis Macular degeneration Prostatism ED (erectile dysfunction) Diverticulosis Hemorrhoid Procedure History Procedure Procedure Date Comments Extraction of wisdom tooth Dysplastic nevus removal MRI of right knee 10/08/2019 - impression:1. postoperative changes of partial meniscectomy of the medial meniscus with near complete loss of volume of the body which is extruded into the medial gutter. Horizontal tear of the posterior horn extends into the root ligament which may have been present at the time of the meniscetomy. Correlate with prior imaging2. Vertical longitudinal tear of the junction of the body and posterior orn of the lateral meniscus3. Tricompartmental grade 4 chondrosis4. Lare knee joint effusion with diffuse synovitis and a moderate-sized Bakers cyst Procedure 2019 - right knee Venous doppler ultrasonography 08/15/2017 - Impression:Normal study X-ray of left ankle 08/15/2017 - Impression:1. No acute fracture or dislocation within the left ankle.2. Mildly displaced fracture involving the anterior calcaneus which extends into the anterior process. Mohs' micrographic surgery 05/16/2017 - right cheek Electrodesiccation with curettage 04/12/2017 - shave left shoulder 3 views 05/11/2016 - Impression: No acute bony abnormality is seen in the left shoulder cervical spine 6 views 05/11/2016 - Impression:No acute bony abnormality is seen involving the cervical spine.Mild cervical spondylosis as above See report Arthroscopic repair of meniscus 03/23/2015 - Right knee Colonoscopy: diverticulosis 06/13/2011 Repair of ruptured biceps tendon 02/1999 - right Allergies and Sensitivities: Allergy Not found in Search(abdominal pain, diarrhea) Family history: Positive for cancer, diabetes, heart disease, hypertension, hypercholesterolemia, rheumatic heart disease, osteoporosis Social history: Completely unremarkable Current Home Meds: (Last Updated 02/03 07:54) glucosamine (Chondroitin- Glucosamine) 1 cap PO Daily Chondroitin 1200 mg and Glucosamine 1500 mg - C Boy 04/06 08:14topical (Voltaren 1% topical gel) 1 appl topical qid PRN: Pain 4g to affected area 4 times a daysulfate (ferrous sulfate 324 mg (65 mg elemental iron) oral tablet) 324 mg PO Daily(hydroCHLOROthiazide 12.5 mg oral tablet) 12.5 mg PO Dailywith minerals (ICaps with Lutein and Zeaxan) 1 tab PO Daily Lutein 25 mg and Zeaxan 5 mg - C Boy 04/06 08:13(naproxen sodium 220 mg oral capsule) 220 mg PO [id number] conjugate vaccine (Prevnar 13 intramuscular suspension) 0.5 mL IM ONCE please administer.(Viagra 100 mg oral tablet) 100 mg PO Daily PRN: as needed for erectile dysfunction 1 hour before sexual activitytopical (triamcinolone 0.1% topical ointment) 1 appl topical bid apply to dermatitis on the ear until clear and then use as needed(Coenzyme Q10 100 mg oral capsule) 100 mg PO Dailyvaccine, inactivated (Shingrix intramuscular injection) 0.5 mL IM ONCE repeat dose in 2 to 6 months Admission Exam Per Admitting Provider General: Alert and oriented x3 with proper grooming and hygiene Eyes: Pupils are equal and reactive to light, and accommodating. Extraocular movements are intact Throat: Anterior oropharynx is clear with absence of edema, erythema and exudate Cardiac: Regular rate and rhythm with no murmurs or gallops appreciated Lungs: Clear to auscultation throughout with no wheezing, rales or rhonchi Abdomen: Obese, nondistended, nontender with normal active bowel sounds Extremities: Right knee; range of motion is from 5 to 120 degrees. There is crepitation with passive range of motion. There is medial joint line tenderness when knee is palpated in the flexed position. There is palpable crepitation with manipulation of the patient's patella. There is 2+ effusion. There is no erythema, ecchymosis, warmth or palpable bony deformity. Patient is neurovascular intact in the right lower extremity. Neuro: Cranial nerves II through XII are intact with no motor or sensory deficit Skin: Normal in appearance with no open skin areas or discharge. Principal Diagnosis Right knee osteoarthritis Discharge Exam Right knee: active ROM from 0-65 degrees. Able to actively SLRT, dorsi/plantar flex foot. Quad strength 3/5. Mild edema and small amount of bloody discharge from distal incision site. No fluctuance. Calf soft and supple. NV intact. Periph pulse palpable. Cap refill < 2 seconds. No clunking with light varus/valgus stressing. Discharge Data Allergies Allergy/AdvReac Type Severity Reaction Status Date / Time No Known Allergies Allergy Verified 03/04/20 05:32 Consultations 03/04/20 09:23 Consult Case Management - Discharge Planning Routine Procedures Performed Operation Date: 03/04/20 07:15 Actual Procedures p Right Total Knee Arthroplasty(Right) - Shlomo Graham MD Ordered Studies 03/04/20 05:00 US - OR guided needle placemen Routine Hospital Course (1) S/P total knee arthroplasty: Patient did very well overnight and with PT/OT this AM. He will be discharge home with in home PT. Pain adequately controlled with PO meds. Pat ient very happy with care. WBAT with immobilizer (first 48 hrs post op) and walker assistance Dressing removed and Silverlon applied Keep in place until follow up PT/OT Pain control with PO meds Ice with EZ wrap DVT prophy with Aspirin and TEDs Discharge home later today with in home PT F/u at [facility] as previous scheduled With questions call Total Time Total Time Spent Total Time Spent (In Minutes): 20 mins Total Time Includes: Examination of the Patient, Discharge Planning and Medication Reconciliation Discharge Plan Discharge Items Patient Disposition: Home - Home Health Services Reason For Visit: Right Knee Ostoearthritis Discharge Diagnosis: Right knee osteoarthritis Activity: As commented below Lifting: None Bathing: Keep incision dry Bathing Comment: May shower tomorrow Sexual Activity: Wait until after follow-up appointment Exercise/Sports: Wait until after follow-up appointment Driving/Machine Use: No driving until cleared by orthropedic specialist Weightbearing Comment: as tolerated with immobilizer and walker assistance Non-emergency contact: Primary Care Provider Call non-emergency contact if: you have any medication questions, your pain is not controlled, your temperature is above 101.5, your wound has increased drainage and your wound pain has increased Follow-up/Referrals: David Wyatt MD [Primary Care Provider] - Diet: Regular Addtl Attending Provider Instructions: Post-operative Instructions Dear Patient and Family/Friends, Before you are discharged from the hospital, it is important to know what to expect when you get home after surgery. To that end, we have created this sheet of discharge instructions which covers many commonly asked questions. Make sure you go through this sheet in its entirety with your nurse before you are discharged. Please note that we will go over the specifics of your surgery and recovery when you return for your first post-operative visit. Sincerely, Dr. Graham Medications 1. Oxycodone 5 mg: take 1-2 tabs po q 4-6 hrs for pain control. This prescription will be sent to your pharmacy. 2. Diclofenac Sodium 75 mg: take 1 tab twice daily for 30 days post operatively for pain control. A prescription with 1 refill will be sent to your pharmacy. 3. Aspirin 81 mg: take 2 tabs daily for 30 days post operatively for blood clot prevention. Please purchase. 4. Extra Strength Tylenol 500 mg: take 2 tabs every 6-8 hours for pain relief for 3 days post operatively. Please purchase. Pain Expect to be in a fair amount of pain after surgery. Remember, our goal is not to eliminate your pain, but to make it tolerable. It is a good idea to stay ahead of your pain by taking the medications you were prescribed once you get home. Typically, the pain starts improving 3-7 days after surgery. You should start weaning off the narcotic pain medication (oxycodone, hydrocodone, hydromorphone, morphine) as soon as your pain improves. Please call our office if your pain is not adequately controlled. Ice Ice your operative site at least 5 times a day for 15-30 minutes at a time. Make sure you have a thin cloth between the ice or cooling unit and your skin to prevent doran bite. This is especially important if you received a nerve block. Continue icing your operative site for the first 5-7 days after surgery, then as needed. Diet/Nausea/Vomiting Start by drinking clear liquids and eating crackers. If you can tolerate this, then you may resume your normal diet. If you feel nauseated or vomit, take Zofran/ondansetron (if prescribed). Please call our office if you have intractable nausea or vomiting, or, if after hours, you may go to the Emergency Room for help. Constipation Constipation is a common side effect of narcotic pain medication. If you have not had a bowel movement within 2 days after surgery, we recommend purchasing an over the counter laxative such as Milk of Magnesia, Dulcolax, or Miralax from a local pharmacy, and taking it as instructed. Call our clinic if any questions. Slings and Braces If you were placed in a sling or brace, it must be worn at all times, including sleep. You may remove your sling or brace for physical therapy, home exercises, and showering. The length of time you will be in your brace and range of motion restrictions depends on what surgery you had; these details will be reviewed at your first post-operative appointment. Nerve block The anesthesia team sometimes places a nerve block to help with post-operative pain control. This results in significant numbness and inability to move the extremity. The nerve block usually wears off in 8-12 hours, but sometimes can last up to 24 hours. Please call our office if you are still unable to move your extremity after 24 hours, unless you received a pain pump to take home. Nerve blocks typically wear off quickly, so start taking pain medication as soon as you start feeling soreness near your surgical site. Weight bearing and Range of Motion. Do not bear any weight through your operative extremity immediately after surgery. If you had upper extremity surgery, do not lift anything with that arm. If you are in a knee brace, keep it locked in place until your follow-up. We will discuss your weight bearing, range of motion, and lifting restrictions in detail at your first post-operative appointment. Continuous Passive Motion (CPM) Machine If you were prescribed a CPM machine, it will start after your first post-operat diego appointment, at which time we will give you instructions on the range of motion settings and duration of treatment Physical therapy You will be given a prescription for physical therapy or occupational therapy at your first post-operative appointment. Typically, patients start therapy within 1 week of surgery Wound care and showering We will inspect your wound at your first post-operative visit, and may do a dressing change at that time. Most patients will be in a water-proof dressing that is removed 14 days after surgery. It is normal to see some dried blood on the dressing. Do not remove your dressing, paper strips or sutures yourself unless you are given permission. Showering is allowed the day after surgery. Do not scrub or remove any dressings. The wound should not be submerged underwater (i.e. in a bathtub or pool) until 4 weeks after surgery TERRANCE stockings If you were given white stockings, these are to be worn at all times except to shower (on both legs) for the first 2 weeks after surgery. Driving You may not drive while taking narcotic pain medication or while in a cast, splint, sling or brace. You, the patient, need to make the final determination about when you are safe to drive, however, the earliest you may consider driving after surgery is below: Hand/Wrist/Elbow Surgery: 3 days Shoulder Surgery: 2 weeks Hip,/Knee/Ankle Surgery: 4 weeks Fracture repair: 6 weeks Return to Work Your return to work depends on what surgery was done and what type of work you do. Please bring any paperwork your employer needs completed to your first post-operative visit. Also, bring a description of your job duties, as this helps us to understand what risks you may face at work. Travel Avoid long distance travel (greater than 1 hour) in airplanes and cars for the first 6 weeks after surgery. If you must travel, you need to have a Doppler ultrasound done before you travel to rule out a blood clot in your legs. Follow-up You should have a follow-up appointment already scheduled 1-2 days after surgery. If not, please contact our office to make this appointment before you leave the hospital. When to call the office It is normal to have swelling and bruising in the limb that was operated on. This will improve with time. It is also normal to have fevers for the first 2 days after surgery. Reasons you should call your doctor include: Uncontrolled pain; Nausea, vomiting, or constipation that does not improve with medication; Fevers over 101.5, chills, sweats; Drainage or bleeding from the wound; Foul odor; Spreading areas of redness; Any other concerns Pending Studies at Discharge: No Stand-Alone Forms: [facility], Opioid Pain Management Medications and DC Order Prescriptions: New oxycodone 5 mg tablet 5 mg PO Q6H Qty: 30 RF: 0 diclofenac sodium 75 mg tablet,delayed release (DR/EC) 75 mg PO BID 30 Days Qty: 60 RF: 1 Continued sildenafil PO DAILY MDD 100 mg PRN (Reason: Acne) RF: 0 ferrous sulfate [iron] 325 mg (65 mg iron) Tablet 325 mg PO DAILY RF: 0 coenzyme Q10 [CoQ-10] 100 mg Capsule 100 mg PO DAILY RF: 0 hydrochlorothiazide 12.5 mg Tablet 12.5 mg PO QAM RF: 0 lutein-zeaxanthin 20 mg- 1,000 mcg Capsule 1 cap PO DAILY RF: 0 Glucosamine Chondroitin 550-30-1 mg Capsule 1 cap PO BID RF: 0 Discontinued naproxen 250 mg Tablet 250 mg PO BID PRN (Reason: Pain) RF: 0 Discharge Orders: Discharge Order (Routine); Ordered 03/05/20 Ordered By: Zach Jansen/Other Patient Handouts: DVT Post Op Prevention Admission Data Admit Date/Time: 03/04/20 09:23 Attending Provider: Shlomo Graham Admit Provider: Shlomo Graham Primary Care Provider: David Wyatt Other Interventions: Discharge Summary Assessment (RN) Last Done: 03/05/20 11:00
== END 2020-03-05 13:00 | disposition home health service (06) | DRG 470 ==
LOC: ASU 05:04 → 3E 09:23